=== PATIENT | male | born 1985 | race Caucasian/White ===

== ENCOUNTER 2017-02-02 15:07 | Emergency (ER) | payer MEDICAID, OTHER ==
[~2017-02-02] VITALS: Ht 172.7 cm; Wt 59.4 kg
--- NOTE | 2017-02-02 15:07 | NUR ---
PT BIBA TO BED 4.
[2017-02-02 15:08] VITALS: BP 129/77
[2017-02-02] MEDS ORDERED: VANCOMYCIN PER PHARMACY MC PRN (15:15)
[2017-02-02] MEDS ORDERED: cefTRIAXone 2,000 MG in DEXTROSE 5% 100 ML IV ONE (15:15)
[2017-02-02] MEDS ORDERED: DEXAMETHASONE 10 MG/ML VIAL IVP ONE (15:15)
[2017-02-02] MEDS ORDERED: VANCOMYCIN 1GM/DEXT 5% PREMIX 200 ML IV ONE (15:15)
[2017-02-02] MEDS ORDERED: NACL 0.9% 1,000 ML IV ONE (15:15)
--- NOTE | 2017-02-02 15:43 | NUR ---
XRAY AT BEDSIDE.
[2017-02-02 15:53] LABS: BASOPHILS # (AUTO) 0.3 K/uL (0.00-0.22)
[2017-02-02 15:55] LABS: BASOPHILS % (AUTO) 2.7 % (0.0-2.0); EOSINOPHILS # (AUTO) 0.1 K/uL (0-0.4); EOSINOPHILS % (AUTO) 1.2 % (0.0-4.0); HEMATOCRIT 42.7 % (36-52); HEMOGLOBIN 14.2 g/dL (12.0-18.0); LYMPHOCYTES # (AUTO) 0.8 K/uL (2.0-11.5); LYMPHOCYTES % (AUTO) 8.2 % (20.5-51.1); MEAN CORPUSCULAR HEMOGLOBIN 31 pg (27-31); MEAN CORPUSCULAR HGB CONC 33 g/dL (33-37); MEAN CORPUSCULAR VOLUME 92 fL (80-94); MONOCYTES # (AUTO) 0.3 K/uL (0.8-1.0); MONOCYTES % (AUTO) 3.2 % (1.7-9.3); NEUTROPHILS # (AUTO) 8.6 K/uL (1.8-7.7); NEUTROPHILS % (AUTO) 84.7 % (42.2-75.2); PLATELET COUNT (AUTO) 487 K/uL (140-450); RED BLOOD CELL COUNT(AUTO) 4.62 MIL/uL (4.20-6.10); WHITE BLOOD COUNT (AUTO) 10.1 K/uL (4.8-10.8)
[2017-02-02] MEDS ORDERED: cefTRIAXone 2,000 MG VIAL ONE (15:58)
--- NOTE | 2017-02-02 16:04 | NUR ---
31/M BIBA FOR HEADACHE X3 WEEKS. PT STATES 10/10 PAIN. PT IS AAOX3. PT STATES HE HAS HX OF MENINGITIS AND WAS IN A COMA 1 YEAR AGO. DENIES N/V/D. LUNGS CLEAR BILAT. HR EVEN AND REGULAR. ERMD TO EVAULATE PT. PT SEEMS RESTLESS AND IS UNCOOPERATIVE.
--- NOTE | 2017-02-02 16:10 | NUR ---
Patient appears to be resting comfortably in bed. Vital Signs within normal limits. Respirations even and unlabored.
[2017-02-02 16:12] LABS: ANION GAP 12.8 (8-16); CALCIUM 9.4 mg/dL (8.5-10.1); CHLORIDE 97 mmol/L (98-107); CREATININE 0.9 mg/dL (0.6-1.3); GFR ARICAN-AMERICAN 127 mL/min (>90); GFR NON ARICAN-AMERICAN 105 mL/min (>90); GLUCOSE 117 mg/dL (74-106); POTASSIUM 3.8 mmol/L (3.5-5.1); SODIUM SERUM 132 mmol/L (136-145); UREA NITROGEN, BLOOD 12 mg/dL (7-18)
[2017-02-02 16:18] LABS: ALANINE AMINOTRANSFERASE 19 U/L (12-78); ALBUMIN 3.9 g/dL (3.4-5.0); ALKALINE PHOSPHATASE 106 U/L (46-116); ASPARTATE AMINOTRANSFERASE 11 U/L (15-37); CREATINE KINASE, TOTAL 82 U/L (39-308); TOTAL BILIRUBIN 0.3 mg/dL (0.0-1.0); TOTAL PROTEIN, SERUM 8.4 g/dL (6.4-8.2)
[2017-02-02 16:30] LABS: ACETAMINOPHEN < 0.5 ug/ml (10-30); SALICYLATE < 2.8 mg/dL (2.8-20.0)
[2017-02-02 16:31] LABS: ALCOHOL, BLOOD < 3 mg/dL (<3)
--- NOTE | 2017-02-02 16:35 | NUR ---
CALLED ENGINE RESEARCH ENGINEER WITH LAB RESULTS FOR CT W/IV CONTRAST TO BE PERFORMED.
[2017-02-02 17:11] LABS: INR 1.1 (0.8-1.2); PARTIAL THROMBOPLASTIN TIME 28.8 secs (22-35.6); PROTHROMBIN TIME 10.4 secs (10.8-13.4)
[2017-02-02] MEDS ORDERED: MIDAZOLAM 2 MG/2 ML VIAL IVP ONE ×3 (17:20→18:10)
[2017-02-02] MEDS ORDERED: MIDAZOLAM 2 MG/2 ML VIAL ONE ×2 (17:24→17:44)
[2017-02-02] MEDS ORDERED: VANCOMYCIN 1GM/DEXT 5% PREMIX 200 ML IV SCH (18:11)
[2017-02-02] MEDS ORDERED: ACETAMINOPHEN 325 MG TAB PO PRN (19:05)
[2017-02-02] MEDS ORDERED: ONDANSETRON 4 MG/2 ML VIAL IVP PRN (19:05)
[2017-02-02] MEDS ORDERED: MORPHINE SULFATE 2 MG/ML SYR IVP PRN (19:05)
[2017-02-02] MEDS ORDERED: DOCUSATE SODIUM 100 MG GELCAP PO PRN (19:05)
[2017-02-02] MEDS ORDERED: NACL 0.9% 1,000 ML IV SCH (19:10)
[2017-02-02] MEDS ORDERED: APAP/BUTAL/CAFF 325/50/40 MG 1 TAB PO PRN (19:10)
[2017-02-02 19:42] LABS: BILIRUBIN,URINE NEGATIVE (NEGATIVE); BLOOD, URINE NEGATIVE (NEGATIVE); LEUKOCYTE ESTERASE ,URINE NEGATIVE (NEGATIVE); NITRITE, URINE NEGATIVE (NEGATIVE); PROTEIN,URINE NEGATIVE (NEGATIVE); UGLUCOSE NEGATIVE (NEGATIVE); UROBILINOGEN,URINE 0.2 EU/dL (0.2 - 1)
[2017-02-02 19:45] LABS: APPEARANCE,URINE CLEAR (CLEAR); COLOR,URINE STRAW (YELLOW)
[2017-02-02 19:46] LABS: CHOL/HDL RATIO 2.4 (1-4.5); MAGNESIUM 1.8 mg/dL (1.8-2.4); PHOSPHORUS 2.1 mg/dL (2.5-4.9); THYROID STIMULATING HORMONE 0.92 uIU/mL (0.34-3.76)
[2017-02-02 19:47] LABS: AMPHETAMINE, URINE NEG. ng/ml (NEG <=1000); BACTERIA,URINE None Seen /HPF (None Seen); BARBITURATE, URINE NEG. ng/ml (NEG <=200); BENZODIAZEPINE, URINE POS. ng/mL (NEG <=200); CANNABINOID, URINE NEG. ng/mL (NEG <=50); COCAINE, URINE NEG. ng/mL (NEG <=300); OPIATE, URINE NEG. ng/mL (NEG <=2000); PHENCYCLIDINE SCREEN,URINE NEG. ng/mL (NEG <=25); RBC,URINE NONE SEEN /HPF (0-5); SQUAMOUS EPITHELIAL CELL,UR None Seen /LPF (0-3 (FEW)); WBC,URINE NONE SEEN /HPF (0-5)
--- NOTE | 2017-02-02 20:05 | NUR ---
VANCOMYCIN ENDING TIME 2004.
--- NOTE | 2017-02-02 20:10 | NUR ---
VANCOMYCIN 135 MLS/HR IV STOPED AT 2009. TOTAL AMOUNT INFUSED 200ML. N ADR NOTED.
[2017-02-02 20:17] LABS: CSF APPEARANCE CLEAR (CLEAR); CSF COLOR COLORLESS (COLORLESS); CSF RED BLOOD CELL COUNT 81 /cumm (0-0); CSF RED BLOOD CELL COUNT TUBE4 27 /cumm (0-0); CSF VOLUME 6.4 mL; CSF WHITE BLOOD CELL COUNT 0 /cumm (0-5); CSF WHITE BLOOD CELL COUNT T#4 0 /cumm (0-5)
[2017-02-02 20:25] LABS: CSF GLUCOSE 15 mg/dL (40-70); CSF PROTEIN 84.9 mg/dL (15-45)
[2017-02-02] MEDS ORDERED: ACYCLOVIR 500 MG in NACL 0.9% 100 ML IV SCH (21:00)
--- NOTE | 2017-02-02 21:11 | NUR ---
2100 meds not given d/t pt refused admission to hospital. pending result. possible AMA. er aware.
--- NOTE | 2017-02-02 21:35 | NUR ---
Note des in ED - 02/02/17 at 2158 by MEDHARSHAL PT SIGNED JIGNA, ARLENE GAYTAN MADE AWARE. NO S/S OF DISTRESS NOTED.
--- NOTE | 2017-02-02 21:35 | NUR ---
Patient does not wish to proceed with medical care recommended by DR PERDUE. Patient given information related to possible complications, up to and including , which could occur as a result of leaving hospital at this time. Patient verbalizes understanding of risks involved leaving against medical advice. Patient has signed AMA form.
[2017-02-02 21:41] VITALS: BP 117/85
--- NOTE | 2017-02-02 21:41 | NUR ---
IV NS 0.9 % DISCONTINUE AT 2141. TOTAL 120ML.
--- NOTE | 2017-02-02 21:41 | NUR ---
PT PICKED UP BY FAMILY NO S/S OF DISTRESS NOTED AT THIS TIME. ER MD MADE AWARE.
[2017-02-03] MEDS ORDERED: LACTOBACILLUS RHAMNOSUS GG 1 EACH CAP PO SCH (09:00)
[2017-02-03 10:47] LABS: MEAN CORPUSCULAR HEMOGLOBIN 31.2 pg (27 - 40); MEAN CORPUSCULAR HGB CONC 34.4 g/dL (32.0 - 36.0); MEAN CORPUSCULAR VOLUME 91 fL (80 - 98)
[2017-02-03 10:48] LABS: BASOPHILS % 0 % (0 - 3); EOSINOPHILS # 0.1 x10E3/uL (0.0 - 0.4); EOSINOPHILS % 1 % (0 - 7); LYMPHOCYTES # 1.1 x10E3/uL (0.7 - 4.5); LYMPHOCYTES % 11 % (14 - 46); MONOCYTES # 0.6 x10E3/uL (0.1 - 1.0); MONOCYTES % 6 % (4 - 13); NEUTROPHILS # 8.2 x10E3/uL (1.8 - 7.8)
[2017-02-03 12:17] LABS: CD8 SUPPRESSOR ABSOLUTE 743 /uL (109-897)
[2017-02-04 10:01] LABS: CD4 HELPER ABSOLUTE 100 /uL (359 - 1519); CD4 POSITIVE LYMPH % 9.1 % (30.8 - 58.5)
[2017-02-04 10:02] LABS: CD8 POSITIVE LYMPH % 67.5 % (12.0 35.5)
--- NOTE | 2017-02-07 09:56 | NUR ---
VANCOCIN STILL INFUSING AFTER SHIFT CHANGE
== END 2017-02-02 21:41 | disposition left against medical advice (07) ==
LOC: MED 15:07 → UNDOADMIN 19:03 → MTU 19:03 → MED 21:41
CPT/HCPCS: 36415; 62270; 70470; 71010; 80053; 80061; 80305; 81001; 82150; 82550; 82948; 83036; 83605; 83690; 83735; 83880; 84100; 84157; 84443; 84484; 85025; 85610; 85730; 86360; 87040; 87086; 87102; 87899; 93005; 96365; 96367; 96375; 96376; 99285; G0480; G0482; J0696; J1100; J2250; J3370; J7030; J7060; Q0092; Q9967; C1758; J0133

== ENCOUNTER 2017-02-16 13:10 | Emergency (ER) | payer OTHER ==
[~2017-02-16] VITALS: Ht 172.7 cm; Wt 58.1 kg
[2017-02-16 13:10] VITALS: BP 115/80
--- NOTE | 2017-02-16 13:38 | NUR ---
EMT DOING EKG AT THIS TIME
--- NOTE | 2017-02-16 13:38 | NUR ---
DR. CLARKE AT BEDSIDE
--- NOTE | 2017-02-16 13:39 | NUR ---
MARIELA FROM HOME C/O GENERALIZED WEAKNESS/FAILURE TO THRIVE X 2 WEEKS; HX: AIDS, BACTERIAL MEINGITIS (2 YEARS), PT STATES I FEEL WEAK, PER PT HE IS PARTIALLY BLIND AND HE SPOT . DENIES N/V/D; SKIN IS PINK/WARM/DRY; AAOX4 WITH EVEN AND STEADY GAIT; LUNGS CLEAR BL; HR EVEN AND REGULAR; PT DENIES ANY FEVER, CP, SOB, OR COUGH AT THIS TIME; PATIENT STATES PAIN OF 0/10 AT THIS TIME; PATIENT POSITIONED FOR COMFORT; HOB ELEVATED; BEDRAILS UP X2; BED DOWN. DR. CLARKE AT BEDSIDE AT THIS TIME. PER PT HE LIVE WITH HIS AUNT.
--- NOTE | 2017-02-16 13:43 | NUR ---
UNABLE TO GIVE URINE AT THIS TIME, CLAIMED IM NOT READY YET, DR CLARKE AWARE
[2017-02-16] MEDS ORDERED: NACL 0.9% 1,000 ML IV ONE ×2 (13:50→16:05)
--- NOTE | 2017-02-16 13:53 | NUR ---
XRAY AT BEDSIDE
--- NOTE | 2017-02-16 14:06 | NUR ---
PT EYES CLOSE, IVF ONGOING WELL TOLERATED,VITAL SIGN STABLE, PT AAO
--- NOTE | 2017-02-16 14:15 | NUR ---
ASK PT IF HE CAN GIVE ME URINE NOW, PER PT NOT READY AT THIS TIME
--- NOTE | 2017-02-16 14:20 | NUR ---
PT SLEEPING,IVF ONGOING VIA PERIPHERAL LINE WELL TOLERATED.
--- NOTE | 2017-02-16 14:48 | NUR ---
PT TRYING TO URINATE AT THIS TIME IN THE URINAL, NOTICE PT LOWER EXTREMITIES WEAK, WILL INFORM DR. CLARKE
--- NOTE | 2017-02-16 15:02 | NUR ---
RELAYED TO DR. CLARKE RESULT OF URINE DIPSTICK
--- NOTE | 2017-02-16 15:39 | NUR ---
WENT TO CT VIA MATT PT AAO X3, WITH FORGETFULNESS
--- NOTE | 2017-02-16 16:03 | NUR ---
PT BACK FROM CT WILL CHECK PT.
--- NOTE | 2017-02-16 16:32 | NUR ---
PT DRINKING APPLE JUICE AT THIS TIME
--- NOTE | 2017-02-16 16:47 | NUR ---
DR. CLARKE AT BEDSIDE
--- NOTE | 2017-02-16 17:07 | NUR ---
DR. CLARKE AT BEDSIDE,PT AAO X3,IVF ONGOING WEL TOLERATED, PT VERBALIZED I FEEL MUCH BETTER
--- NOTE | 2017-02-16 17:09 | NUR ---
DR. CLARKE EXPLAINED TO PT THE NEED TO BE TRANSFER TO ANOTHER HOSPITAL FOR MRI, PT AGREED WITH IT. PT CALM, NO SOB NOTED.
--- NOTE | 2017-02-16 17:22 | NUR ---
LEAVE MESSAGE TO KAYLIN,PT'S UNCLE AND KAREN COUSIN [phone], REGARDING TRANSFER TO [facility], PT AWARE LEAVE MESSAGE TO FAMILY
--- NOTE | 2017-02-16 17:58 | NUR ---
REPORT GIVEN TO MCKENZIE CHARGE NURSE IN [facility]
--- NOTE | 2017-02-16 17:59 | NUR ---
CALL PLACE AGAIN TO KAREN [phone] COUSIN, LEAVE MESSAGE IN ANSWERING MACHINE REGARDING LIST OF HOME MEDS
[2017-02-16 18:03] VITALS: BP 121/78
--- NOTE | 2017-02-16 18:20 | NUR ---
Patient to be transferred to [facility] ER. Is being transferred due to [place], Receiving facility has accepting physician and available space. ER physician has signed transfer form. Patient or responsible libertarian has agreed to transfer and signed form. Patient belongings inventoried and will be sent with patient. Copy of nursing notes, lab reports, EKG, Physicians Orders and X-rays to be sent with patient. Report called to MCKENZIE at receiving facility.
--- NOTE | 2017-02-16 18:25 | NUR ---
PICKED UP BY [facility] IN GOOD CONDITION, PT AAO ,NO C/O PAIN, VITAL SIGN STABLE, BELONGINGS WITH THE PT,IV HEPLOCK ON LEFT AC GAUGE 20
== END 2017-02-16 18:20 | disposition short-term general hospital (02) ==
LOC: MED 13:10
DX: R90.0 Intracranial space-occupying lesion found on diagnostic imaging of central nervous system (principal); R91.1 Solitary pulmonary nodule; R41.82 Altered mental status, unspecified
CPT/HCPCS: 36415; 70450; 71010; 71260; 80053; 81001; 83605; 83690; 84484; 85025; 87040; 93005; 96360; 96361; 99285; J7030; Q0092; Q9967